=== PATIENT | female | born 1990 | race Caucasian/White ===

== ENCOUNTER 2016-09-11 12:31 | Emergency (ER) | payer MEDICAID, OTHER ==
[~2016-09-11] VITALS: Ht 144.8 cm; Wt 56.5 kg
[~2016-09-11 12:31] MED LIST: ACET500C5 PO; IBUP-1542 PO; NITR-58 PO
[2016-09-11 12:35] VITALS: Ht 144.8 cm; Wt 56.5 kg
[2016-09-11] MEDS ORDERED: MECL-77 PO (12:59)
[2016-09-11] MEDS ORDERED: PSEU30TA38 PO (12:59)
--- NOTE | 2016-09-11 13:47 | ERA ---
ER Documentation Chief Complaint Date/Time DATE: 09/11/16 TIME: 13:45 Chief Complaint bilat ear pain, miller, x 1 month HPI Patient presents with chief complaint of congestion, cough, ear discomfort bilaterally, and mild dizziness. Patient has not done anything to relieve the symptoms at this time. Patient denies any other associated manifestations. ROS All systems reviewed and are negative except as per history of present illness. Medications Home Meds Active Scripts Meclizine Hcl* (Meclizine Hcl*) 25 Mg Tablet, 25 MG PO Q8H Y for DIZZINESS for 3 Days, TAB Prov:KAREN NEWTON PA-C 09/11/16 Pseudoephedrine Hcl* (Pseudoephedrine Hcl*) 30 Mg Tablet, 30 MG PO Q6 Y for CONGESTION for 7 Days, TAB Prov:KAREN NEWTON PA-C 09/11/16 Nitrofurantoin Monohyd Macrocr* (Macrobid*) 100 Mg Capsr, 100 MG PO BID for 5 Days, CAP Prov:ELICEO HENNESSY PA-C 07/28/15 Acetaminophen* (Tylophen*) 500 Mg Capsule, 1 CAP PO Q6H Y for PAIN AND OR ELEVATED TEMP, #20 CAP Prov:ALTA CALDERON. ICHTHYOLOGY TEACHER 07/12/15 Acetaminophen* (Tylophen*) 500 Mg Capsule, 1 CAP PO Q4 Y for PAIN AND OR ELEVATED TEMP, #30 CAP Prov:ELICEO HENNESSY PA-C 05/25/15 Ibuprofen* (Motrin*) 600 Mg Tab, 600 MG PO Q6H Y for PAIN AND OR ELEVATED TEMP, #30 TAB Prov:ELICEO HENNESSY PA-C 05/25/15 Ibuprofen* (Motrin*) 600 Mg Tab, 600 MG PO Q6H Y for PAIN AND OR ELEVATED TEMP, #30 Prov:ALTA CALDERON ICHTHYOLOGY TEACHER 03/12/15 Allergies Allergies: Coded Allergies: No Known Drug Allergy (Verified Allergy, Mild, 03/02/07) PMhx/Soc History of Surgery: Yes (appy , x2 ) Anesthesia Reaction: No Hx Neurological Disorder: No Hx Respiratory Disorders: No Hx Cardiac Disorders: No Hx Psychiatric Problems: No Hx Miscellaneous Medical Probl: No Hx Alcohol Use: No Hx Substance Use: No Hx Tobacco Use: No Physical Exam Vitals Vital Signs Date Time Temp Pulse Resp B/P Pulse Ox O2 Delivery O2 Flow Rate FiO2 09/11/16 12:35 98.8 110 18 130/85 97 Physical Exam Const: Well-appearing overweight 25-year-old female Head: Atraumatic Eyes: Normal Conjunctiva. PERRLA, extraocular movements intact bilaterally. No nystagmus. ENT: Retraction of the tympanic membranes bilaterally. Unremarkable external auditory ear canal. Cone light reflex seen bilaterally. Normal External Ears, Nose and Mouth. Neck: Full range of motion..~ No meningismus. Resp: Clear to auscultation bilaterally Cardio: Regular rate and rhythm, no murmurs Abd: Soft, non tender, non distended. Normal bowel sounds Skin: No petechiae or rashes Back: No midline or flank tenderness Ext: No cyanosis, or edema Neur: Awake and alert. Heel to turner unremarkable. No dysdiadochokinesia. Psych: Normal Mood and Affect Procedures/MDM Patient's had symptoms for 3 days. Most likely diagnosis is acute sinusitis versus acute bronchitis. We will go ahead and discharge the patient with a decongestant to help with the symptoms. Patient will also be given meclizine for possible vertigo as she describes more of a chronic dizziness. Patient's dizziness does not occur at rest but more when she is moving. I recommended that she follow-up with her primary care physician in the next 1-3 days for evaluation and management of chronic conditions. Departure Diagnosis: Primary Impression: Acute bronchitis Qualified Code: J20.9 - Acute bronchitis, unspecified organism Additional Impressions: Acute frontal sinusitis Qualified Code: J01.10 - Acute frontal sinusitis, recurrence not specified BPV (benign positional vertigo) Qualified Code: H81.10 - BPV (benign positional vertigo), unspecified laterality Condition: Stable Patient Instructions: Acute Sinusitis Additional Instructions: Follow up with your PCP within the next 1-3 days for a more thorough evaluation and a possible referral to a specialist. Return the the emergency department immediately if symptoms worsen or change. If you have any questions regarding medications, ask your pharmacist or us before you leave. If any adverse reactions occur while taking your medications, discontinue the treatment and return to the emergency department immediately. Take your medications as directed, and complete the entire course of treatment. KAREN NEWTON PA-C September 11, 2016 13:47
== END 2016-09-11 13:24 | disposition home or self-care (01) ==
LOC: FTE 12:31
DX: J20.9 Acute bronchitis, unspecified (principal); J01.10 Acute frontal sinusitis, unspecified; H81.10 Benign paroxysmal vertigo, unspecified ear
CPT/HCPCS: 99283

== ENCOUNTER 2017-03-03 13:00 | Emergency (ER) | payer OTHER ==
[~2017-03-03] VITALS: Ht 152.4 cm; Wt 58.2 kg
[~2017-03-03 13:00] MED LIST changes: +MECL-77 PO; +PSEU30TA38 PO
[2017-03-03 13:29] VITALS: Ht 152.4 cm; Wt 58.2 kg
[2017-03-03] MEDS ORDERED: ACETAMINOPHEN 500 MG TAB PO STA (13:53)
--- NOTE | 2017-03-03 14:18 | RADRPT ---
PROCEDURE: XR Chest. CLINICAL INDICATION: Cough, shortness of breath TECHNIQUE: A single AP view of the chest was obtained. COMPARISON: None. FINDINGS: No focal airspace opacification, pleural effusion or pneumothorax is seen. There is a 2 mm right mid lung granuloma. The cardiomediastinal silhouette is within normal limits for size. The osseous st ructures are unremarkable. IMPRESSION: Unremarkable chest x-ray. RPTAT: HH .Tatyana Saunders MD, MD Date Time Electronically viewed and signed by .Tatyana Saunders MD, on 03/03/2017 14:17 .G/
--- NOTE | 2017-03-03 14:25 | ERD ---
ER Documentation Chief Complaint Chief Complaint midupper back pain x 3 days HPI This is a 26-year-old female who presents the emergency department today complaining of upper back pain for the past 2-3 days. States that she does not want to take any ibuprofen because she has a history of gastritis. States that 2 weeks ago she had a cough and an infection in her stomach and was given antibiotics however she is unsure of the name. States yesterday she felt short of breath. Denies any fevers or chills, chest pain. ROS All systems reviewed and are negative except as per history of present illness. Medications Home Meds Active Scripts Cyclobenzaprine Hcl* (Cyclobenzaprine Hcl*) 10 Mg Tablet, 10 MG PO QHS, #7 TAB Prov:BELEN THOMASON PA-C 03/03/17 Acetaminophen* (Tylophen*) 500 Mg Capsule, 1 CAP PO Q6H Y for PAIN AND OR ELEVATED TEMP, #30 CAP Prov:BELEN THOMASON PA-C 03/03/17 Meclizine Hcl* (Meclizine Hcl*) 25 Mg Tablet, 25 MG PO Q8H Y for DIZZINESS for 3 Days, TAB Prov:KAREN NEWTON PA-C 09/11/16 Pseudoephedrine Hcl* (Pseudoephedrine Hcl*) 30 Mg Tablet, 30 MG PO Q6 Y for CONGESTION for 7 Days, TAB Prov:KAREN NEWTON PA-C 09/11/16 Nitrofurantoin Monohyd Macrocr* (Macrobid*) 100 Mg Capsr, 100 MG PO BID for 5 Days, CAP Prov:ELICEO HENENSSYC 07/28/15 Acetaminophen* (Tylophen*) 500 Mg Capsule, 1 CAP PO Q6H Y for PAIN AND OR ELEVATED TEMP, #20 CAP Prov:ALTA CALDERON NP 07/12/15 Acetaminophen* (Tylophen*) 500 Mg Capsule, 1 CAP PO Q4 Y for PAIN AND OR ELEVATED TEMP, #30 CAP Prov:ELICEO HENNESSY-C 05/25/15 Ibuprofen* (Motrin*) 600 Mg Tab, 600 MG PO Q6H Y for PAIN AND OR ELEVATED TEMP, #30 TAB Prov:ELICEO HENNESSYC 05/25/15 Ibuprofen* (Motrin*) 600 Mg Tab, 600 MG PO Q6H Y for PAIN AND OR ELEVATED TEMP, #30 Prov:ALTA CALDERON ELEMENTARY INSTRUCTIONAL COACH 03/12/15 Allergies Allergies: Coded Allergies: No Known Drug Allergy (Verified Allergy, Mild, 03/02/07) PMhx/Soc History of Surgery: Yes (appy , x2 ) Anesthesia Reaction: No Hx Neurological Disorder: No Hx Respiratory Disorders: No Hx Cardiac Disorders: No Hx Psychiatric Problems: No Hx Miscellaneous Medical Probl: No Hx Alcohol Use: No Hx Substance Use: No Hx Tobacco Use: No Smoking Status: Never smoker Physical Exam Vitals Vital Signs Date Time Temp Pulse Resp B/P Pulse Ox O2 Delivery O2 Flow Rate FiO2 03/03/17 13:29 98.4 91 18 116/76 98 Physical Exam Const: NAD Head: Atraumatic Eyes: Normal Conjunctiva ENT: Normal External Ears, Nose and Mouth. Neck: Full range of motion..~ No meningismus. Tenderness palpation bilateral lower trapezius. Resp: Clear to auscultation bilaterally. No absent breath sounds Cardio: Regular rate and rhythm, no murmurs Abd: Soft, non tender, non distended. Normal bowel sounds Skin: No petechiae or rashes Back: No midline or flank tenderness Ext: No cyanosis, or edema Neur: Awake and alert Psych: Normal Mood and Affect Results 24 hrs Current Medications Medications (Trade) Dose Ordered Sig/Ragini Route PRN Reason Start Time Stop Time Status Last Admin Dose Admin Acetaminophen (Tylenol Tab) 500 mg ONCE STAT PO 03/03/17 13:53 03/03/17 13:54 DC 03/03/17 14:17 Procedures/MDM This a 26-year-old female who presents the emergency department today complaining of upper back pain for the past 2-3 days. Patient did indicate that she massaged it and it felt better. Patient is afebrile and otherwise well -appearing. She did report URI symptoms a couple of weeks ago and was concerned that there is something wrong with her lungs. Patient is not tachycardic and her oxygen saturation is 98%. Given patient's concerns and recent history of URI I did obtain a chest x-ray. Chest x-ray is unremarkable. There is no focal airspace opacification, pleural effusion or pneumothorax. There is a 2 mm right mid lung granuloma. Patient has pain bilaterally on her lower trapezius muscle and this appears to be musculoskeletal. Patient for acute fracture dislocation. She has no midline tenderness. She is no shortness of breath or cough at this time and have low suspicion for PE, abscess, pleural effusion or pneumothorax. She was given Tylenol here in the emergency department. She will be given a prescription for Tylenol and Flexeril for home. She was instructed to massage the area and apply ice and heat intermittently. At this time the patient is stable for discharge and outpatient management. Patient should follow up with their PCP in the next 1-2 days. They may return to the emergency department sooner for any persistent or worsening of symptoms. Patient understood and agreed with the plan. Departure Diagnosis: Primary Impression: Back pain Back pain location: back pain in other location Chronicity: acute Qualified Code: M54.9 - Other acute back pain Condition: Fair BELEN THOMASON PA-C Mar 03, 2017 14:25
[2017-03-03] MEDS ORDERED: ACET500C5 PO (14:26)
[2017-03-03] MEDS ORDERED: CYCL-319 PO (14:27)
== END 2017-03-03 14:51 | disposition home or self-care (01) ==
LOC: FTE 13:00
DX: M54.6 Pain in thoracic spine (principal)
CPT/HCPCS: 71010; Z7502; Z7610